=== PATIENT | male | born 1990 | race Caucasian/White ===

== ENCOUNTER 2016-06-24 17:43 | Emergency (ER) | payer MEDICAID ==
[~2016-06-24] VITALS: Ht 177.8 cm; Wt 100.0 kg
[~2016-06-24 17:43] MED LIST: ALBU6.7H INH
[2016-06-24 17:45] VITALS: BP 139/90; PULSE 80; RESP 20; TEMP 98.5; O2SAT 100
--- NOTE | 2016-06-24 18:08 | PD ---
HPI Chief Complaint: Bite or Sting Time Seen by Provider: 18:08 Travel History International Travel<30 days: No Contact w/Intl Traveler<30days: No Traveled to known affect area: No History of Present Illness HPI 25-year-old male presents emergency Department with complaint of a bull ant bite to his left forearm with worsening of reddening around the bite 2 days. Denies fever or vomiting. Denies paresthesias, loss of sensation, decreased range of motion, decreased strength to the affected extremity. Has been taking Benadryl because the area is also itchy. Has also been taking ibuprofen. Reports multiple other and bites to hands and right upper extremity that are without signs of of infection. Reports being up-to-date on his tetanus vaccination. No known allergies. Has no other medical complaints. No other modifying factors or associated signs and symptoms. PFSH Past Medical History Arthritis: Yes Asthma: Yes Cardiovascular Problems: Yes (HTN) Endocrine: No Genitourinary: No Immune Disorder: No Musculoskeletal: Yes Neurologic: No Psychiatric: No Reproductive: No Respiratory: Yes Social History Alcohol Use: Yes (8 beers a day) Tobacco Use: No Substance Use: No Allergies-Medications (Allergen,Severity, Reaction): Coded Allergies: No Known Allergies (Unverified , 06/24/16) Reported Meds & Prescriptions Reported Meds & Active Scripts Active Ibuprofen 800 Mg Tab 800 Mg PO Q6HR PRN Keflex (Cephalexin) 500 Mg Cap 500 Mg PO Q6H 10 Days Bactrim DS (Sulfamethoxazole-Trimethoprim) 800-160 Mg Tab 1 Tab PO BID 10 Days Review of Systems Except as stated in HPI: all other systems reviewed are Neg Physical Exam Narrative GENERAL: Well-nourished, well-developed male patient, in no acute distress; afebrile, nontoxic-appearing SKIN: Warm and dry. Left forearm with large areas of erythema and warmth to touch; small partial noted in the center of the erythemic area without drainage. Left upper extremity supple and nontender 2+ radial pulses and sensory intact. HEAD: Atraumatic. Normocephalic. EYES: Pupils equal and round. No scleral icterus. No injection or drainage. ENT: Mucosa pink and moist. Airway patent. NECK: Trachea midline. CARDIOVASCULAR: Regular rate. RESPIRATORY: No accessory muscle use. GASTROINTESTINAL: Rounded. MUSCULOSKELETAL: No obvious deformities. No clubbing. No cyanosis. No edema. NEUROLOGICAL: Awake and alert. Oriented 3. No obvious cranial nerve deficits. Motor grossly within normal limits. Normal speech. PSYCHIATRIC: Appropriate mood and affect; insight and judgment normal. Data Data Last Documented VS Vital Signs Date Time Temp Pulse Resp B/P Pulse Ox O2 Delivery O2 Flow Rate FiO2 06/24/16 17:45 98.5 80 20 139/90 100 Room Air MDM Medical Decision Making Medical Screen Exam Complete: Yes Emergency Medical Condition: Yes Medical Record Reviewed: Yes Differential Diagnosis Infected insect bite, cellulitis, wound infection Narrative Course 25-year-old male with area of cellulitis surrounding an ant bite. Patient is afebrile nontoxic appearing. Denies fever, vomiting. Up-to-date on his tetanus vaccination. Area of cellulitis marked with a surgical marker. Keflex , Bactrim, ibuprofen prescribed for home. Instructed patient to take Benadryl as needed for itching. This reasons to return to the emergency department. Patient verbalizes understanding and agreement with treatment plan. Patient is medically cleared and stable for discharge. Discussed reasons to return to the emergency department. Instructed patient to follow up with primary care provider. Patient agrees with treatment plan. The patients vital signs are stable and the patient is stable for outpatient follow-up and treatment. Patient discharged home, stable and in no acute distress. Diagnosis Primary Impression: Infected insect bite of left forearm Qualified Code: S50.862A - Infected insect bite of left forearm, initial encounter Referrals: Primary Care Physician Patient Instructions: General Instructions, Insect Bite or Sting (ED) Departure Forms: Tests/Procedures, Work Release Enter return to work date: June 25, 2016 Additional Instructions: Complete full course of antibiotics Cold or Warm compresses to the affected area Keep area clean and dry Ibuprofen or Tylenol as directed and as needed for pain and inflammation Benadryl as instructed and as needed for itching Follow-up with primary care provider Return to emergency department immediately with worsening of symptoms Med/Other Pt SpecificInfo: Prescription(s) given Scripts Ibuprofen 800 Mg [id number] Mg PO Q6HR PRN (PAIN) #30 TAB Ref 0 Prov:Jayshree Vasquez [employer] 06/24/16 Cephalexin (Keflex)500 Mg [id number] Mg PO Q6H 10 Days Ref 0 Prov:Jayshree Vasquez [employer] 5/7/17 Sulfamethoxazole-Trimethoprim (Bactrim DS)800-160 Mg Tab1 Tab PO BID 10 Days Ref 0 Prov:Jayshree Vasuqez 06/24/16 Disposition: 01 DISCHARGE HOME Condition: Stable Jayshree Vasquez June 24, 2016 18:08
[2016-06-24] MEDS ORDERED: CEPH-460 PO (18:15)
[2016-06-24] MEDS ORDERED: BACT800T5 PO (18:15)
[2016-06-24] MEDS ORDERED: IBUP800T23 PO (18:15)
== END 2016-06-24 18:16 | disposition home or self-care (01) ==
LOC: NEPK 17:43
DX: S51.852A Open bite of left forearm, initial encounter (principal); I10 Essential (primary) hypertension; W57.XXXA Bitten or stung by nonvenomous insect and other nonvenomous arthropods, initial encounter
CPT/HCPCS: 99281